=== PATIENT | female | born 1955 | race Caucasian/White ===

== ENCOUNTER 2017-08-25 23:33 | Inpatient (IN) | payer MEDICARE, MEDICAID ==
[2017-08-26] MEDS: ONDANSETRON 4MG/2ML VIAL (J2405) IV
[2017-08-26 00:36] LABS: HEMOGLOBIN 14.5 g/dl (12.0-16.0); MEAN CORPUSCULAR HEMOGLOBIN 30.7 pg (27.0-33.0); MEAN CORPUSCULAR HGB CONC 33.7 g/dl (32.0-36.5); MEAN CORPUSCULAR VOLUME 91.1 fl (80.0-96.0); PLATELET COUNT, AUTOMATED 294 10^3/uL (150-450); RED BLOOD COUNT 4.72 10^6/uL (4.00-5.40); RED CELL DISTRIBUTION WIDTH 13.3 % (11.5-14.5); WHITE BLOOD COUNT 16.1 10^3/uL (4.0-10.0)
[2017-08-26 00:49] LABS: PROTHROMBIN TIME 12.2 SECONDS (12.4-14.5)
[2017-08-26 01:05] LABS: ANION GAP 7 MEQ/L (8-16); BLOOD UREA NITROGEN 17 MG/DL (7-18); CALCIUM LEVEL 9.1 MG/DL (8.8-10.2); CARBON DIOXIDE LEVEL 31 MEQ/L (21-32); CHLORIDE LEVEL 101 MEQ/L (98-107); CREATININE FOR GFR 1.17 MG/DL (0.55-1.02); GLOMERULAR FILTRATION RATE 49.9 (>45); GLUCOSE, FASTING 121 MG/DL (80-110); POTASSIUM SERUM 4.5 MEQ/L (3.5-5.1); SODIUM LEVEL 139 MEQ/L (136-145)
[2017-08-26] MEDS: MORPHINE 4 MG/ML 1ML SYRINGE IV ×2 (01:55)
[2017-08-26] MEDS: NS 1,000 ML IV ×5 (02:30→21:04)
[2017-08-26] MEDS: HYDROmorphone HCL 1 MG/ML SYRINGE (J1170) IV ×9 (02:45→12:55)
[2017-08-26 06:06] LABS: BASO # 0.1 10^3/uL (0.0-0.2); BASO % 0.6 % (0.0-1.0); EOS # 0.2 10^3/uL (0.0-0.50); EOS % 2.1 % (0.0-3.0); HEMATOCRIT 40.8 % (36.0-47.0); HEMOGLOBIN 13.6 g/dl (12.0-16.0); IMMATURE GRANULOCYTE # 0.1 10^3/uL (0-0); IMMATURE GRANULOCYTE % 0.6 % (0-0); LYMPH # 1.7 10^3/uL (1.5-4.5); LYMPH % 15.9 % (24.0-44.0); MEAN CORPUSCULAR HEMOGLOBIN 30.4 pg (27.0-33.0); MEAN CORPUSCULAR HGB CONC 33.3 g/dl (32.0-36.5); MEAN CORPUSCULAR VOLUME 91.3 fl (80.0-96.0); MONO % 9.1 % (0.0-5.0); NEUTROPHILS # 7.8 10^3/uL (1.8-7.7); NEUTROPHILS % 71.7 % (36.0-66.0); PLATELET COUNT, AUTOMATED 264 10^3/uL (150-450); RED BLOOD COUNT 4.47 10^6/uL (4.00-5.40); RED CELL DISTRIBUTION WIDTH 13.5 % (11.5-14.5); WHITE BLOOD COUNT 10.8 10^3/uL (4.0-10.0)
[2017-08-26 06:31] LABS: ANION GAP 6 MEQ/L (8-16); BLOOD UREA NITROGEN 15 MG/DL (7-18); CALCIUM LEVEL 7.8 MG/DL (8.8-10.2); CARBON DIOXIDE LEVEL 27 MEQ/L (21-32); CHLORIDE LEVEL 108 MEQ/L (98-107); CREATININE FOR GFR 0.92 MG/DL (0.55-1.02); GLOMERULAR FILTRATION RATE > 60.0 (>45); GLUCOSE, FASTING 116 MG/DL (80-110); POTASSIUM SERUM 4.7 MEQ/L (3.5-5.1); SODIUM LEVEL 141 MEQ/L (136-145)
[2017-08-26] MEDS: CARVedilol 3.125 MG TAB PO ×2 (08:00→21:03)
[2017-08-26] MEDS ORDERED: HYDROmorphone HCL 1 MG/ML SYRINGE (J1170) IV ×3 (08:00→12:45)
[2017-08-26] MEDS: PANTOPRAZOLE 40MG INJ (PROTONIX) (C9113) IV (08:02)
[2017-08-26] MEDS ORDERED: ceFAZolin 2 GM/D5W 50 ML IV BAG (J0690 PER 500MG) As Ordered (08:35)
[2017-08-26] MEDS: ASPIRIN ENTERIC 325 MG TAB PO (09:00)
[2017-08-26] MEDS: METAMUCIL (PSYLLIUM) PACKET PO (09:00)
[2017-08-26] MEDS: LORATADINE 10 MG TAB PO (09:00)
[2017-08-26] MEDS ORDERED: INFLUENZA QUADRIVALENT PF VACCINE 0.5ML SYRINGE (90686) IM (09:00)
[2017-08-26] MEDS: FLUTICASONE PROP 0.05% NASAL SPRAY 16 GM (FLONASE) (09:00)
[2017-08-26] MEDS: ceFAZolin 1GM INJ (J0690 PER 500MG) As Ordered (09:08)
[2017-08-26] MEDS: BUPIVACAINE HCL 0.25% 10 ML VIAL As Ordered (09:30)
[2017-08-26] MEDS: LIDOCAINE W/EPINEPHRINE 1% 20ML VIAL As Ordered (09:30)
[2017-08-26] MEDS ORDERED: MIDAZOLAM INJ 2 MG/2 ML VIAL (J2250) As Ordered ×2 (09:32→10:53)
[2017-08-26] MEDS ORDERED: PROPOFOL 200 MG/20 ML VIAL As Ordered ×2 (09:32→10:48)
[2017-08-26] MEDS ORDERED: ePHEDrine SULFATE 25 MG/5 ML(5MG/ML) SYRINGE As Ordered ×3 (09:32→09:50)
[2017-08-26] MEDS ORDERED: ONDANSETRON 4MG/2ML VIAL (J2405) As Ordered (09:32)
[2017-08-26] MEDS ORDERED: fentaNYL 250 MCG/5 ML INJECTION (J3010) As Ordered (09:32)
[2017-08-26] MEDS ORDERED: PHENYLephrine HCL 500 MCG/5 ML (100MCG/ML) SYRINGE (J2370) As Ordered (09:32)
[2017-08-26] MEDS ORDERED: LEVALBUTEROL 1.25 MG/0.5 ML CONCENTRATE NEB As Ordered (11:54)
[2017-08-26] MEDS: LEVALBUTEROL 1.25 MG/0.5 ML CONCENTRATE NEB NEB (11:55)
[2017-08-26] MEDS ORDERED: ONDANSETRON 4MG/2ML VIAL (J2405) IV (12:15)
[2017-08-26] MEDS: LR 1,000 ML IV (12:15)
[2017-08-26] MEDS ORDERED: PERCOCET 5MG/325MG TAB As Ordered (12:16)
[2017-08-26] MEDS: PERCOCET 5MG/325MG TAB PO ×3 (12:17→23:25)
[2017-08-26] MEDS ORDERED: PROMETHAZINE INJ 25 MG/ML VIAL (J2550) IV (12:30)
[2017-08-26] MEDS ORDERED: HYDROmorphone HCL 1 MG/ML SYRINGE (J1170) As Ordered (12:33)
[2017-08-26] MEDS: fentaNYL 100 MCG/2 ML INJECTION (J3010) IV ×2 (12:55→13:00)
[2017-08-26] MEDS ORDERED: fentaNYL 100 MCG/2 ML INJECTION (J3010) As Ordered (12:56)
[2017-08-26] MEDS: OMEPRAZOLE 20 MG CAP PO ×2 (14:40→21:03)
[2017-08-26] MEDS: VITAMIN D 1,000 INTERNATIONAL UNITS TABLET PO (14:40)
[2017-08-26] MEDS: GABAPENTIN 300 MG CAP PO ×3 (14:41→21:03)
[2017-08-26] MEDS: MORPHINE 15 MG SA TAB PO ×2 (14:41→21:04)
[2017-08-26] MEDS: MORPHINE 2 MG/ML 1ML SYRINGE IV (14:42)
[2017-08-26] MEDS: ALBUTEROL 90 MCG/ACT 8GM HFA INHALER INH (23:47)
[2017-08-27] MEDS: PERCOCET 5MG/325MG TAB PO ×4 (03:30→17:00)
[2017-08-27 06:51] LABS: BASO % 0.3 % (0.0-1.0); EOS # 0.4 10^3/uL (0.0-0.50); EOS % 3.4 % (0.0-3.0); HEMATOCRIT 36.1 % (36.0-47.0); HEMOGLOBIN 11.8 g/dl (12.0-16.0); IMMATURE GRANULOCYTE % 0.4 % (0-0); LYMPH # 1.8 10^3/uL (1.5-4.5); LYMPH % 17.1 % (24.0-44.0); MEAN CORPUSCULAR HEMOGLOBIN 30.2 pg (27.0-33.0); MEAN CORPUSCULAR HGB CONC 32.7 g/dl (32.0-36.5); MEAN CORPUSCULAR VOLUME 92.3 fl (80.0-96.0); MONO # 1.2 10^3/uL (0.0-0.8); MONO % 11.3 % (0.0-5.0); NEUTROPHILS # 7.3 10^3/uL (1.8-7.7); NEUTROPHILS % 67.5 % (36.0-66.0); PLATELET COUNT, AUTOMATED 194 10^3/uL (150-450); RED BLOOD COUNT 3.91 10^6/uL (4.00-5.40); RED CELL DISTRIBUTION WIDTH 13.5 % (11.5-14.5); WHITE BLOOD COUNT 10.7 10^3/uL (4.0-10.0)
[2017-08-27 07:16] LABS: ANION GAP 6 MEQ/L (8-16); BLOOD UREA NITROGEN 9 MG/DL (7-18); CALCIUM LEVEL 7.9 MG/DL (8.8-10.2); CARBON DIOXIDE LEVEL 29 MEQ/L (21-32); CHLORIDE LEVEL 103 MEQ/L (98-107); CREATININE FOR GFR 0.85 MG/DL (0.55-1.02); GLOMERULAR FILTRATION RATE > 60.0 (>45); GLUCOSE, FASTING 136 MG/DL (80-110); SODIUM LEVEL 138 MEQ/L (136-145)
[2017-08-27] MEDS: MOM 30ML SUSPENSION UDC PO (09:00)
[2017-08-27] MEDS: FLUTICASONE PROP 0.05% NASAL SPRAY 16 GM (FLONASE) (09:00)
[2017-08-27] MEDS: ASPIRIN ENTERIC 325 MG TAB PO (09:00)
[2017-08-27] MEDS ORDERED: INFLUENZA QUADRIVALENT PF VACCINE 0.5ML SYRINGE (90686) IM (09:00)
[2017-08-27] MEDS: MORPHINE 15 MG SA TAB PO ×2 (09:00→21:09)
[2017-08-27] MEDS: METAMUCIL (PSYLLIUM) PACKET PO (09:00)
[2017-08-27] MEDS: SENOKOT S TAB PO ×2 (09:02→21:08)
[2017-08-27] MEDS: MIRALAX *UNIT DOSE* 17GM PACKET PO (09:02)
[2017-08-27] MEDS: GABAPENTIN 300 MG CAP PO ×3 (09:02→21:08)
[2017-08-27] MEDS: VITAMIN D 1,000 INTERNATIONAL UNITS TABLET PO (09:03)
[2017-08-27] MEDS: CARVedilol 3.125 MG TAB PO ×2 (09:03→21:09)
[2017-08-27] MEDS: OMEPRAZOLE 20 MG CAP PO ×2 (09:04→21:08)
[2017-08-27] MEDS: LORATADINE 10 MG TAB PO (09:04)
[2017-08-27] MEDS: IPRATROPIUM 0.5MG/ALBUTEROL 2.5MG INH SOL UD 3ML (DUONEB)(J7620) NEB (09:24)
[2017-08-28] MEDS: PERCOCET 5MG/325MG TAB PO ×5 (00:19→19:35)
[2017-08-28] MEDS: oxyCODONE 5MG TAB PO ×3 (02:34→23:53)
[2017-08-28 07:10] LABS: BASO % 0.4 % (0.0-1.0); EOS # 0.3 10^3/uL (0.0-0.50); EOS % 4.2 % (0.0-3.0); HEMATOCRIT 32.7 % (36.0-47.0); HEMOGLOBIN 10.8 g/dl (12.0-16.0); IMMATURE GRANULOCYTE % 0.2 % (0-0); LYMPH # 1.6 10^3/uL (1.5-4.5); MEAN CORPUSCULAR HEMOGLOBIN 30.4 pg (27.0-33.0); MEAN CORPUSCULAR VOLUME 92.1 fl (80.0-96.0); MONO # 0.9 10^3/uL (0.0-0.8); MONO % 11.4 % (0.0-5.0); NEUTROPHILS # 5.2 10^3/uL (1.8-7.7); NEUTROPHILS % 63.8 % (36.0-66.0); PLATELET COUNT, AUTOMATED 183 10^3/uL (150-450); RED BLOOD COUNT 3.55 10^6/uL (4.00-5.40); RED CELL DISTRIBUTION WIDTH 13.2 % (11.5-14.5); WHITE BLOOD COUNT 8.2 10^3/uL (4.0-10.0)
[2017-08-28 07:22] LABS: ANION GAP 3 MEQ/L (8-16); BLOOD UREA NITROGEN 10 MG/DL (7-18); CALCIUM LEVEL 8.2 MG/DL (8.8-10.2); CARBON DIOXIDE LEVEL 32 MEQ/L (21-32); CHLORIDE LEVEL 103 MEQ/L (98-107); CREATININE FOR GFR 0.85 MG/DL (0.55-1.02); GLOMERULAR FILTRATION RATE > 60.0 (>45); GLUCOSE, FASTING 121 MG/DL (80-110); POTASSIUM SERUM 3.9 MEQ/L (3.5-5.1); SODIUM LEVEL 138 MEQ/L (136-145)
[2017-08-28] MEDS: IPRATROPIUM 0.5MG/ALBUTEROL 2.5MG INH SOL UD 3ML (DUONEB)(J7620) NEB ×3 (07:37→21:03)
[2017-08-28] MEDS: MOM 30ML SUSPENSION UDC PO (08:38)
[2017-08-28] MEDS: METAMUCIL (PSYLLIUM) PACKET PO (08:38)
[2017-08-28] MEDS: MIRALAX *UNIT DOSE* 17GM PACKET PO (08:38)
[2017-08-28] MEDS: GABAPENTIN 300 MG CAP PO ×3 (08:39→21:08)
[2017-08-28] MEDS: VITAMIN D 1,000 INTERNATIONAL UNITS TABLET PO (08:39)
[2017-08-28] MEDS: CARVedilol 3.125 MG TAB PO ×2 (08:39→21:09)
[2017-08-28] MEDS: OMEPRAZOLE 20 MG CAP PO ×2 (08:39→21:08)
[2017-08-28] MEDS: ASPIRIN ENTERIC 325 MG TAB PO (08:39)
[2017-08-28] MEDS: SENOKOT S TAB PO ×2 (08:39→21:08)
[2017-08-28] MEDS: FLUTICASONE PROP 0.05% NASAL SPRAY 16 GM (FLONASE) (08:40)
[2017-08-28] MEDS: MORPHINE 15 MG SA TAB PO ×2 (08:40→21:09)
[2017-08-28] MEDS: LORATADINE 10 MG TAB PO (08:40)
[2017-08-29] MEDS: PERCOCET 5MG/325MG TAB PO ×2 (02:52→13:51)
[2017-08-29] MEDS: oxyCODONE 5MG TAB PO (06:52)
[2017-08-29] MEDS ORDERED: IPRATROPIUM 0.5MG/ALBUTEROL 2.5MG INH SOL UD 3ML (DUONEB)(J7620) NEB (07:00)
[2017-08-29 07:37] LABS: BASO # 0.1 10^3/uL (0.0-0.2); BASO % 0.6 % (0.0-1.0); EOS # 0.5 10^3/uL (0.0-0.50); EOS % 5.6 % (0.0-3.0); HEMATOCRIT 34.9 % (36.0-47.0); HEMOGLOBIN 11.6 g/dl (12.0-16.0); IMMATURE GRANULOCYTE % 0.3 % (0-0); LYMPH # 1.9 10^3/uL (1.5-4.5); LYMPH % 20.7 % (24.0-44.0); MEAN CORPUSCULAR HEMOGLOBIN 30.4 pg (27.0-33.0); MEAN CORPUSCULAR HGB CONC 33.2 g/dl (32.0-36.5); MEAN CORPUSCULAR VOLUME 91.6 fl (80.0-96.0); MONO # 1.1 10^3/uL (0.0-0.8); MONO % 11.8 % (0.0-5.0); NEUTROPHILS # 5.5 10^3/uL (1.8-7.7); PLATELET COUNT, AUTOMATED 215 10^3/uL (150-450); RED BLOOD COUNT 3.81 10^6/uL (4.00-5.40); RED CELL DISTRIBUTION WIDTH 13.4 % (11.5-14.5)
[2017-08-29 07:56] LABS: ANION GAP 6 MEQ/L (8-16); BLOOD UREA NITROGEN 10 MG/DL (7-18); CALCIUM LEVEL 8.6 MG/DL (8.8-10.2); CARBON DIOXIDE LEVEL 30 MEQ/L (21-32); CHLORIDE LEVEL 102 MEQ/L (98-107); CREATININE FOR GFR 0.89 MG/DL (0.55-1.02); GLOMERULAR FILTRATION RATE > 60.0 (>45); GLUCOSE, FASTING 103 MG/DL (80-110); POTASSIUM SERUM 4.3 MEQ/L (3.5-5.1); SODIUM LEVEL 138 MEQ/L (136-145)
[2017-08-29] MEDS: GABAPENTIN 300 MG CAP PO ×2 (08:27→15:45)
[2017-08-29] MEDS: MOM 30ML SUSPENSION UDC PO (08:27)
[2017-08-29] MEDS: LORATADINE 10 MG TAB PO (08:27)
[2017-08-29] MEDS: OMEPRAZOLE 20 MG CAP PO (08:27)
[2017-08-29] MEDS: ASPIRIN ENTERIC 325 MG TAB PO (08:27)
[2017-08-29] MEDS: SENOKOT S TAB PO (08:27)
[2017-08-29] MEDS: VITAMIN D 1,000 INTERNATIONAL UNITS TABLET PO (08:27)
[2017-08-29] MEDS: CARVedilol 3.125 MG TAB PO (08:28)
[2017-08-29] MEDS: METAMUCIL (PSYLLIUM) PACKET PO (08:28)
[2017-08-29] MEDS: FLUTICASONE PROP 0.05% NASAL SPRAY 16 GM (FLONASE) (08:28)
[2017-08-29] MEDS: MORPHINE 15 MG SA TAB PO (08:28)
[2017-08-29] MEDS: IPRATROPIUM 0.5MG/ALBUTEROL 2.5MG INH SOL UD 3ML (DUONEB)(J7620) NEB ×2 (08:40→15:29)
[2017-08-29] MEDS: ONDANSETRON 4 MG TAB (S0181) PO ×2 (10:37→14:25)
[2017-08-29 12:32] LABS: HEMATOCRIT 34.9 % (36.0-47.0); HEMOGLOBIN 11.6 g/dl (12.0-16.0)
[2017-08-29] MEDS: PANTOPRAZOLE 40MG TAB (PROTONIX) PO (14:38)
== END 2017-08-29 16:45 | disposition home or self-care (01) | DRG 494 ==
LOC: M ED 23:33 → M ED INP 08-26 04:32 → M MS5PR 08-26 05:11
PROC: 0SSG04Z Reposition Left Ankle Joint with Internal Fixation Device, Open Approach (ICD-10-PCS; principal; 2017-08-26 08:30)
DX: S82.852A Displaced trimalleolar fracture of left lower leg, initial encounter for closed fracture (principal); E66.9 Obesity, unspecified; M54.9 Dorsalgia, unspecified; J44.9 Chronic obstructive pulmonary disease, unspecified; G62.9 Polyneuropathy, unspecified; J30.2 Other seasonal allergic rhinitis; K21.9 Gastro-esophageal reflux disease without esophagitis; I10 Essential (primary) hypertension; W01.0XXA Fall on same level from slipping, tripping and stumbling without subsequent striking against object, initial encounter; Y92.018 Other place in single-family (private) house as the place of occurrence of the external cause; Y93.01 Activity, walking, marching and hiking; Y99.9 Unspecified external cause status; Z87.891 Personal history of nicotine dependence; Z79.891 Long term (current) use of opiate analgesic; Z79.899 Other long term (current) drug therapy

== ENCOUNTER → 2018-02-07 | Outpatient (REF) | payer MEDICARE, MEDICAID | LOC: M LAB REF 15:27 | DX: L03.116 Cellulitis of left lower limb (principal) | CPT/HCPCS: 87205 ==

== ENCOUNTER → 2019-07-18 | Outpatient (REF) ==
[~2019-07-18] MED LIST: ASPI-1 PO; BREO1INH3 INH; CALC600T57 PO; CARV3.12 PO; CELE1CAP9 PO; CLAR1TAB2 PO; FLUTISP; GABA-843 PO; MORP-69 PO; OMEP20CA4 PO; OXYC10TA12 PO; PERC5TAB12 PO; PROAAER10 INH; VITA200015 PO
== END ==
LOC: M LAB LCGH 13:52
PROVIDERS: ATTEND Physician Assistant
DX: L57.0 Actinic keratosis (principal)

== ENCOUNTER → 2019-09-18 | Outpatient (CLI) | payer MEDICARE, MEDICAID ==
[~2019-09-18] MED LIST changes: +OMEP1CAP73 PO; -OMEP20CA4 PO
--- NOTE | 2019-09-18 17:33 | REP ---
Bilateral lower extremity arterial Doppler ultrasound: History: Peripheral vascular disease. Findings: Ankle brachial indices are normal measured at 0.9 bilaterally. Exam image quality was inhibited somewhat by patient body habitus. Monophasic arterial wave forms are noted throughout both lower extremities. No evidence of occlusion or high-grade stenosis seen. Velocity chart right lower extremity artery: Right D I A 118 cm/S Right PINEDA 90 CF A 115 Profunda 49 Proximal SFA 104 Mid SFA 96 Distal SFA 97 Popliteal 57 Proximal AT A 34 Tibioperoneal trunk 78 Proximal DRAWING TENDER 71 Distal DRAWING TENDER 55 Distal AT A 62 Velocity chart left lower extremity arteries: Left PINEDA 58 cm/S Left D I A 91 CF A 78 Profunda 50 Proximal SFA 98 Mid SFA 105 Distal SFA 69 Popliteal 68 Proximal AT A 32 Tibioperoneal trunk 65 Proximal DRAWING TENDER 21 Distal DRAWING TENDER 75 Distal AT A 55 Electronically Signed by Jf Reeves MD 09/18/2019 05:24 P
== END ==
LOC: M RAD 10:28
PROVIDERS: ATTEND Physician Assistant
DX: M79.606 Pain in leg, unspecified (principal); F17.210 Nicotine dependence, cigarettes, uncomplicated; Z79.51 Long term (current) use of inhaled steroids; Z79.82 Long term (current) use of aspirin; Z79.899 Other long term (current) drug therapy

== ENCOUNTER → 2019-10-02 | Outpatient (CLI) | payer MEDICARE, MEDICAID ==
[2019-10-02 12:39] LABS: HEMATOCRIT 48.9 % (36.0-47.0); MEAN CORPUSCULAR HEMOGLOBIN 29.7 pg (27.0-33.0); MEAN CORPUSCULAR HGB CONC 32.7 g/dl (32.0-36.5); MEAN CORPUSCULAR VOLUME 90.9 fl (80.0-96.0); PLATELET COUNT, AUTOMATED 247 10^3/uL (150-450); RED BLOOD COUNT 5.38 10^6/uL (4.00-5.40); WHITE BLOOD COUNT 9.7 10^3/uL (4.0-10.0)
[2019-10-02 12:58] LABS: BLOOD UREA NITROGEN 19 MG/DL (7-18); CALCIUM LEVEL 8.6 MG/DL (8.8-10.2); CARBON DIOXIDE LEVEL 27 MEQ/L (21-32); CHLORIDE LEVEL 106 MEQ/L (98-107); CREATININE FOR GFR 0.96 MG/DL (0.55-1.30); GLOMERULAR FILTRATION RATE > 60.0 (>45); GLUCOSE, FASTING 117 MG/DL (70-100); POTASSIUM SERUM 4.5 MEQ/L (3.5-5.1); SODIUM LEVEL 140 MEQ/L (136-145)
== END ==
LOC: M LAB 10:26
PROVIDERS: ATTEND Physician Assistant
DX: I70.211 Atherosclerosis of native arteries of extremities with intermittent claudication, right leg (principal)

== ENCOUNTER → 2019-10-30 | Outpatient (CLI) | payer MEDICARE, MEDICAID ==
[~2019-10-30] MED LIST changes: +ACETAMINOPHEN 325 MG TAB PO PRN; +CLOP75TA2 PO; +CLOPIDOGREL 75 MG TAB As Ordered ONE; +CLOPIDOGREL 75 MG TAB PO ONE; +HEPARIN 1,000 UNITS/ML 10ML VIAL (FOR RADIOLOGY& DIALYSIS ONLY)(J1644-10) As Ordered ONE; +ISOVUE-300 61% 50ML VIAL (Q9967) As Ordered ONE; +LIDOCAINE 1% MDV 20ML VIAL As Ordered ONE; +MIDAZOLAM INJ 2 MG/2 ML VIAL (J2250) As Ordered ONE; +PERCOCET 5MG/325MG TAB As Ordered ONE; +PERCOCET 5MG/325MG TAB PO PRN; +fentaNYL 100 MCG/2 ML INJECTION (J3010) As Ordered ONE
[2019-10-30 09:28] LABS: HEMATOCRIT 44.8 % (36.0-47.0); HEMOGLOBIN 14.6 g/dl (12.0-15.5); MEAN CORPUSCULAR HEMOGLOBIN 29.7 pg (27.0-33.0); MEAN CORPUSCULAR HGB CONC 32.6 g/dl (32.0-36.5); MEAN CORPUSCULAR VOLUME 91.1 fl (80.0-96.0); PLATELET COUNT, AUTOMATED 212 10^3/uL (150-450); RED BLOOD COUNT 4.92 10^6/uL (4.00-5.40); WHITE BLOOD COUNT 7.8 10^3/uL (4.0-10.0)
[2019-10-30 09:31] LABS: CALCIUM LEVEL 8.5 MG/DL (8.8-10.2); GLOMERULAR FILTRATION RATE 59.4 (>45); POTASSIUM SERUM 4.1 MEQ/L (3.5-5.1)
--- NOTE | 2019-10-30 11:34 | ROOPDOC ---
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 Ultrasound-guided access bilateral common femoral arteries 2. Aortoiliofemoral arteriograms with oblique views, and bilateral lower ext remity runoff through common femoral artery sheaths bilaterally 3. Right common iliac artery stenting with balloon expandable express stents: 9 x 25 proximally, 8 x 37 mid, and 7 x 37 distal extending to mid external iliac artery 4. Left common iliac artery stenting with 8 x 27 express balloon expandable stent 5. Completion arteriograms 6. Mynx closure bilateral common femoral arteries SURGEON: Luz Marina Story MD ANESTHESIA: Local anesthesia with 15 mL lidocaine. Moderate intravenous conscious sedation was supervised by Dr. Story. The patient was independently monitored by registered nurse under the department of radiology using automated blood pressure, EKG, and pulse oximetry. The detailed sedation record is permanently stored in the hospital information system. The following is the brief sedation record: Start time 10:07, stop time 11:05, Versed 2 mg IV, fentanyl 50 g IV, heparin 3000 units IV. INDICATION FOR PROCEDURE: This is a very pleasant 64-year-old patient with chronic back pain, and monophasic flow on her arterial duplex suggestive of iliac disease bilaterally. The right lower extremity is worse than the left. I believe the patient does have significant inflow disease, but I also believe some of her lower extremity symptoms may be due to neuropathic pain rather than arterial insufficiency. We discussed that even with improved blood flow, her pain may not completely resolve and she understands this. Risks benefits alternatives to an arteriogram potential intervention were explained to the patient and she is agreeable to proceed. Informed consent was obtained. INTERPRETATION: 1. No aortic stenosis as noted below the diaphragm. The bilateral common iliac arteries do not have any focal severe stenoses, but they have diffuse heavy plaque circumferentially with ectasia that is is flow-limiting bilaterally. The right common iliac artery bifurcation near the origin of the hypogastric is angulated and tortuous which also may be contributing to slower flow on the right. The left common iliac artery extension into the external iliac arteries widely patent. Both hypogastric's are widely patent. 2. The bilateral lower extremity common femoral arteries, profundus, as the phase, popliteal arteries are widely patent. On the right, the patient has 3 vessel runoff to the foot with no significant stenosis. On the left, the patient has a bit slower flow through the tibials to the foot, but we do have intact flow through the anterior tibial and posterior tibial through the foot. The peroneal artery tapers down and has limited flow to the ankle. The patient has a history of orthopedic surgical intervention in the left lower leg, which may contribute to her somewhat sluggish tibial flow. 3. After stenting the bilateral common iliac arteries in extending the stent through the right common iliac artery into the external iliac artery proximally, the patient has widely patent inflow into the femoral vessels bilaterally. No flow limitation is noted after blood expandable stent placement. There is no extravasation embolization or dissection noted. REPORT OF OPERATION: The patient was brought to the angiographic suite in stable condition. Her bilateral groins were prepped and draped in a sterile fashion. A timeout was performed. Sedation was administered without compensation. Local anesthesia was administered to the skin and subcutaneous tissue over the left common femoral artery and a microneedle was used to access the artery under ultrasound guidance. A wire was passed through this access under fluoroscopic guidance needle was removed and a 4 [employer] glide sheath was placed over the wire using the Seldinger technique. The sheath was flushed with saline. We then advanced a Glidewire into the aorta and did not be flush catheter over the wire. Aortoiliofemoral arteriograms were performed, including oblique views of iliac systems. Although no focal severe stenosis could be identified within the iliac system, there is definitely flow limitation through both common iliac arteries due to heavy plaque and ectasia circumferentially. The left 4 [employer] sheath was exchanged for 6 [employer] sheath and flushed with saline. We then performed and access on the right common femoral artery in the same fashion as we obtained access on the left, after anesthetizing with local anesthesia. A Glidewire was advanced into the aorta through the right 4 [employer] sheath under fluoroscopic guidance and the sheath was exchanged for 6 [employer] sheath and flushed with saline. On the right and 8 x 37 express to was advanced to the origin of the common iliac artery and on the left and an 8 x 27 express stent was advanced the origin of the common iliac artery. A quick contrast injection confirmed correct placement, and the stents were deployed. Unfortunately, the right stent moved distally slightly before deployment, and felt just short of the origin where we had hoped it would land. We therefore selected and 9 x 25 stent which was advanced to the proximal right common iliac artery, but not extending into the aorta. With the 8 x 27 balloon to protect the left side, we deployed the right common iliac artery origin stent. Following this, there was widely patent inflow through the origins of both common iliac arteries. Due to the tortuosity at the distal common iliac artery near the takeoff of the hypogastric, there was some limitation of flow through the right iliac system distal to the stent. We therefore selected a 7 x 37 express stent and deployed this with a 1 cm overlap across the distal common iliac artery and proximal external iliac artery. Following this, there was widely patent inflow through the iliac system with no flow limitation. Both femoral vessels had a much improved pulse on exam. We then performed a quick runoff through both lower extremities to make sure we did not miss any distal disease, and to make sure we did not embolize during stenting of the common iliac arteries. We had excellent runoff bilaterally, please see interpretation above. We deployed Mynx closure devices in both common femoral arteries with good hemostasis. Pressure was held for 10 minutes and sterile dressings were applied. The patient was taken to recovery in stable condition. There were no complications and she tolerated the sedation and procedure well. CONTRAST: 120 mL Isovue-300 ESTIMATED BLOOD LOSS: Approximately 20 mL. COMPLICATIONS: None. PLAN: Okay to resume patient's home medications and diet. She will need 60 days of Plavix post stent placement. We would like to see her back in clinic in a week to see how her groin access sites are healing and see how she is doing. LUZ MARINA STORY MD Oct 30, 2019 11:34
[2019-10-30 15:00] VITALS: BP 185/88
== END ==
LOC: M IRPRO 08:32
PROVIDERS: ATTEND Surgery Vascular Surgery
DX: I70.213 Atherosclerosis of native arteries of extremities with intermittent claudication, bilateral legs (principal); M19.90 Unspecified osteoarthritis, unspecified site; J44.9 Chronic obstructive pulmonary disease, unspecified; G43.909 Migraine, unspecified, not intractable, without status migrainosus; M79.7 Fibromyalgia; M48.00 Spinal stenosis, site unspecified
CPT/HCPCS: 37221; 37223; 75716; 80048; 85027; 99152; 99153; C1760; C1769; C1876; C1894; J1644; J2250; J3010; Q9967

== ENCOUNTER → 2019-12-16 | Outpatient (CLI) | payer MEDICARE, MEDICAID ==
[~2019-12-16] MED LIST changes: -ACETAMINOPHEN 325 MG TAB PO PRN; -CLOPIDOGREL 75 MG TAB As Ordered ONE; -CLOPIDOGREL 75 MG TAB PO ONE; -HEPARIN 1,000 UNITS/ML 10ML VIAL (FOR RADIOLOGY& DIALYSIS ONLY)(J1644-10) As Ordered ONE; -ISOVUE-300 61% 50ML VIAL (Q9967) As Ordered ONE; -LIDOCAINE 1% MDV 20ML VIAL As Ordered ONE; -MIDAZOLAM INJ 2 MG/2 ML VIAL (J2250) As Ordered ONE; -PERCOCET 5MG/325MG TAB As Ordered ONE; -PERCOCET 5MG/325MG TAB PO PRN; -fentaNYL 100 MCG/2 ML INJECTION (J3010) As Ordered ONE
--- NOTE | 2019-12-16 11:29 | REP ---
BILATERAL LOWER EXTREMITY DUPLEX DOPPLER ARTERIAL ULTRASOUND: Real-time ultrasound evaluation and duplex Doppler interrogation of bilateral lower extremity arterial system is performed and compared to a prior study of 09/18/2019. Since that time, the patient has had placement of bilateral common iliac artery stents. The MELISSA evaluation could not be performed as the patient was unable to tolerate blood pressure cuff compression secondary to edema. There is no evidence of hemodynamically significant stenosis of either lower extremity arterial system. Diffuse monophasic waveforms are seen bilaterally. There is significant diastolic flow. Flow velocities are somewhat increased since the prior ultrasound. Peak systolic velocity of the distal abdominal aorta is 114 cm/s. Right Peak Left Peak Systolic Velocity Systolic velocity Common iliac artery 104 cm/s 125 cm/s External iliac artery 132 cm/s 178 cm/s Common femoral artery 154 cm/s 127 cm/s Profunda 96 cm/s 82 cm/s Proximal SFA 143 cm/s 120 cm/s Mid SFA 116 cm/s 120 cm/s Distal SFA 101 cm/s 101 cm/s Popliteal 70 cm/s 79 cm/s Proximal HERLINDA 79 cm/s 49 cm/s Tibioperoneal trunk 107 cm/s 81 cm/s Proximal SAL[employer] TRAINEE 40 cm/s 40 cm/s Distal [employer]INEE 72 cm/s 64 cm/s Distal HERLINDA 65 cm/s 70 cm/s Electronically Signed by Rogers Means MD 12/16/2019 12:11 P
== END ==
LOC: M RAD 08:34
PROVIDERS: ATTEND Physician Assistant
DX: I70.213 Atherosclerosis of native arteries of extremities with intermittent claudication, bilateral legs (principal); F17.218 Nicotine dependence, cigarettes, with other nicotine-induced disorders; I10 Essential (primary) hypertension

== ENCOUNTER 2020-01-10 09:01 | Outpatient (RCR) | payer MEDICARE, MEDICAID | END 2020-01-26 | LOC: M PT 09:01 | PROVIDERS: ATTEND Physician Assistant | DX: I89.0 Lymphedema, not elsewhere classified (principal) ==

== ENCOUNTER 2020-02-20 10:00 | Outpatient (RCR) | payer MEDICARE, MEDICAID | END 2020-02-25 | LOC: M PT 10:00 | PROVIDERS: ATTEND Physician Assistant | DX: I89.0 Lymphedema, not elsewhere classified (principal) ==

== ENCOUNTER 2020-03-04 15:45 | Outpatient (RCR) | payer MEDICARE, MEDICAID | END 2020-03-27 | LOC: M PT 15:45 | PROVIDERS: ATTEND Physician Assistant | DX: I89.0 Lymphedema, not elsewhere classified (principal) ==

== ENCOUNTER → 2020-06-23 | Outpatient (CLI) | payer MEDICARE, MEDICAID ==
--- NOTE | 2020-06-23 15:50 | REP ---
INDICATION: ATHSCL ARTERIES W/ CLAUDICATION COMPARISON: 12/16/2019. TECHNIQUE: Real time means scale and Duplex Doppler evaluation of the bilateral lower extremity arterial vasculature using linear high frequency transducer. FINDINGS: Means scale and duplex doppler images demonstrate only minimal scattered plaque bilaterally with no evidence of hemodynamically significant stenosis in either lower extremity arterial system. Diffuse triphasic and biphasic waveforms are seen bilaterally. MELISSA on the right is 0.88 and on the left is 0.80. The distal abdominal aorta and bilateral common iliac arteries could not be seen due to overlying bowel gas. Right external iliac artery demonstrates monophasic waveform with peak systolic velocity 115 centimeters/second, left external iliac artery peak systolic velocity 144 centimeters/seconds, triphasic waveform. Peak systolic velocities (cm/sec) Common femoral artery: Right 100; Left 89 Profunda femoris: Right 56; Left 65 SFA (proximal): Right 96; Left 99 SFA (mid): Right 90; Left 106 SFA (distal): Right 65; Left 62 Popliteal artery: Right 54; Left 49 HERLINDA (prox.): Right 55; Left 43 Tibioperoneal trunk: Right 79; Left 61 MANAGER PRIVATE (prox.): Right 60; Left 31 MANAGER [employer]IVATE (distal): Right 68; Left 35 HERLINDA (distal): Right 56; Left 39 IMPRESSION: No focal occlusion or stenosis as discussed in detail above. <Electronically signed by Rogers Means > 06/23/20 [id number]
== END ==
LOC: M RAD 12:31
PROVIDERS: ATTEND Physician Assistant
DX: I70.213 Atherosclerosis of native arteries of extremities with intermittent claudication, bilateral legs (principal)

== ENCOUNTER 2020-12-30 15:15 | Outpatient (RCR) | payer MEDICARE, MEDICAID ==
[~2020-12-30 15:15] MED LIST changes: +GABA-282 PO; -GABA-843 PO
== END 2021-01-25 ==
LOC: M PT 15:15
PROVIDERS: ATTEND Physician Assistant
DX: I89.0 Lymphedema, not elsewhere classified (principal)

== ENCOUNTER 2021-07-14 12:00 | Outpatient (RCR) | payer MEDICARE, MEDICAID | END 2021-07-27 | LOC: M PT 12:00 | PROVIDERS: ATTEND Physician Assistant | DX: I89.0 Lymphedema, not elsewhere classified (principal) ==

== ENCOUNTER 2023-04-19 13:30 | Outpatient (RCR) | payer MEDICARE, MEDICAID ==
[~2023-04-19 13:30] MED LIST changes: +FLUT50SP17; -FLUTISP
== END 2023-04-27 ==
LOC: M PT 13:30
PROVIDERS: ATTEND Nurse Practitioner Family
DX: I89.0 Lymphedema, not elsewhere classified (principal)

== ENCOUNTER 2023-08-17 10:44 | Outpatient (RCR) | payer MEDICARE, MEDICAID ==
[~2023-08-17 10:44] MED LIST changes: +CELE0.09 PO; -CELE1CAP9 PO; -FLUT50SP17; +FLUTISP
== END 2023-08-27 ==
LOC: M PT 10:44
PROVIDERS: ATTEND Nurse Practitioner Family
DX: I89.0 Lymphedema, not elsewhere classified (principal)